=== PATIENT | male | born 1970 ===

== ENCOUNTER 2021-01-14 17:51 | Emergency (ER) | payer BC ==
[2021-01-14] MEDS ORDERED: ASPIRIN 325 MG TAB PO ONE (22:06)
[2021-01-14] MEDS ORDERED: NITROGLYCERIN 0.4 MG TAB SUBL SL PRN (22:06)
--- NOTE | 2021-01-14 22:06 | Emergency Department Report ---
ED Chest Pain HPI - General Stated Complaint: CHEST PAIN Time Seen by Provider: 01/14/21 22:05 - History of Present Illness Initial Comments: Patient presents secondary to chest pain. He has been having chest pain in the left side of his chest rating of the left shoulder for several days now. He decided to come here for evaluation. This is nontraumatic. He states that it worsened when he was lying on his left side. Patient states that the pain is not exertional. He is able to get up and move and that does not change his pain in any way. Patient does not feel short of breath. He just could not get comfortable. He has no cough or congestion. There is no fevers or chills. There is no history of recent travel or trauma. Patient states that he came here for evaluation treatment because of the pain itself. This has been constant for the last several days. - Related Data Allergies Allergy/AdvReac Type Severity Reaction Status Date / Time No Known Allergies Allergy Verified 01/14/21 22:58 Heart Score - HEART Score History: Slightly suspicious EKG: Normal Age: 45-65 Risk factors: 1-2 risk factors Troponin: < normal limit HEART Score: 2 - EKG Read Time Time EKG Completed: 17:55 EKG Read Time: 18:00 ED Review of Systems ROS: Stated complaint: CHEST PAIN Other details as noted in HPI Comment: All other systems reviewed and negative Constitutional: denies: fever Eyes: denies: vision change ENT: denies: throat pain Respiratory: denies: cough Cardiovascular: as per HPI, chest pain Endocrine: denies: unexplained weight loss Gastrointestinal: denies: abdominal pain Genitourinary: denies: urgency Musculoskeletal: denies: back pain Skin: denies: rash Neurological: denies: headache Hematological/Lymphatic: denies: easy bruising ED Past Medical Hx - Past Medical History Previous Medical History?: No - Family History Family history: no significant ED Physical Exam - General Limitations: No Limitations, Other (Pulse ox noted and normal) General appearance: alert, in no apparent distress - Head Head exam: Present: atraumatic, normocephalic - Eye Eye exam: Present: normal appearance, EOMI. Absent: scleral icterus - ENT ENT exam: Present: normal exam, mucous membranes dry, normal external ear exam - Neck Neck exam: Present: normal inspection. Absent: meningismus - Respiratory Respiratory exam: Present: normal lung sounds bilaterally. Absent: respiratory distress - Cardiovascular Cardiovascular Exam: Present: regular rate, normal rhythm - GI/Abdominal GI/Abdominal exam: Present: soft. Absent: tenderness - Extremities Exam Extremities exam: Present: normal capillary refill. Absent: calf tenderness - Back Exam Back exam: Absent: CVA tenderness (R), CVA tenderness (L) - Neurological Exam Neurological exam: Present: alert, oriented X3, CN II-XII intact, normal gait, reflexes normal. Absent: motor sensory deficit - Psychiatric Psychiatric exam: Present: normal affect, normal mood - Skin Skin exam: Present: warm, dry ED Course Vital Signs 01/14/21 22:50 Temperature 98.2 F Pulse Rate 96 H Respiratory 16 Rate Blood Pressure 186/100 [Left] O2 Sat by Pulse 98 Oximetry - Reevaluation(s) Reevaluation #1: 01/14/21 22:05 Patient was placed in a room and seen at this time. EKG was noted. IV and labs ordered. Old records reviewed. Reevaluation #2: 01/15/21 05:42 Work-up was complete and the patient was discharged GLO score - Glo Score Age > 65: (0) No Aspirin use within the Past 7 Days: (0) No 3 or more CAD Risk Factors: (0) No 2 or more Angina events in past 24 hrs: (0) No Known CAD with more than 50% Stenosis: (0) No Elevated Cardiac Markers: (0) No ST Deviation Greater than 0.5mm: (0) No GLO Score: 0 ED Medical Decision Making - Lab Data Result diagrams: 01/14/21 22:31 01/14/21 22:31 Rhythm strip: Normal sinus rhythm without ectopy per monitor observe 10 seconds. - EKG Data -: EKG Interpreted by Dc - EKG Data 01/14/21 22:07 1753-EKG shows normal sinus rhythm at 87. Intervals normal including a QRS of 86 and a QT corrected of 448. Patient has no ST elevation to suggest STEMI. There is no ST depression suggestive of ischemia. There is isolated T wave flattening in lead III. There was no old EKG for comparison. - Radiology Data Radiology results: report reviewed - Medical Decision Making Patient present with chest pain of unclear etiology. He has no evidence of EKG changes suggest AMI or ACS. Patient does not have ST depression suggestive of ischemia. Patient has had symptoms for several days now that he reports have been constant. Despite this, there is no change in EKG or troponin. I do not believe second troponin is required. He has a sufficiently low heart score. There was no clinical evidence of pneumonia. He did not have a pulse deficit or other symptoms suggestive of aortic dissection. There was no risk factor for PE and well score was low. Critical Care Time: No Critical care attestation.: If time is entered above; I have spent that time in minutes in the direct care of this critically ill patient, excluding procedure time. ED Disposition Clinical Impression: Left-sided chest pain Disposition: HOME / SELF CARE / HOMELESS Is pt being admited?: No Condition: Stable Instructions: Nonspecific Chest Pain, Adult, Pain Without a Known Cause Additional Instructions: Drink plenty water. Return for problems. Follow-up with your regular doctor for recheck and further management. Rest tonight. Take an aspirin every day. Follow-up with cardiology as referred. Referrals: PRIMARY CAREMD [Primary Care Provider] - 3-5 Days GERARDO LLODY MD [Staff Physician] - 3-5 Days MILENA GREEN MD [Staff Physician] - 3-5 Days Forms: Work/School Release Form(ED)
--- NOTE | 2021-01-14 22:46 | XRay Report ---
CHEST 2 VIEWS INDICATION / CLINICAL INFORMATION: cp. COMPARISON: None available. FINDINGS: SUPPORT DEVICES: None. HEART / MEDIASTINUM: No significant abnormality. LUNGS / PLEURA: No significant pulmonary or pleural abnormality. No pneumothorax. ADDITIONAL FINDINGS: No significant additional findings. IMPRESSION: 1. No acute findings. Signer Name: Nolan Leavitt MD Signed: 01/14/2021 10:42 PM Workstation Name: [id number]
[2021-01-14 22:48] LABS: Hematocrit 49.6 % (35.5-45.6); Hemoglobin 16.7 gm/dl (11.8-15.2); Mean Corpuscular HGB Conc 34 % (32-34); Mean Corpuscular Volume 95 fl (84-94); Platelet Count 306 K/mm3 (140-440); Red Blood Count 5.23 M/mm3 (3.65-5.03); Red Cell Distribution Width 12.6 % (13.2-15.2)
[2021-01-14 22:52] VITALS: BP 186/100
[2021-01-14 23:03] LABS: BUN/Creatinine Ratio 4; Blood Urea Nitrogen 3 mg/dL (9-20); Calcium 9.3 mg/dL (8.4-10.2); Hemolysis Index 82
--- NOTE | 2021-01-17 10:07 | Electrocardiograph Report ---
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
== END 2021-01-15 | disposition home or self-care (01) ==
LOC: ED 17:51
DX: R07.89 Other chest pain (principal)
CPT/HCPCS: 36415; 71046; 80048; 84484; 85027; 93005; 99284